=== PATIENT | male | born 1990 | race African-American/Black ===

== ENCOUNTER 2022-01-04 20:01 | Emergency (ER) | payer OTHER ==
[~2022-01-04] VITALS: Ht 162.6 cm; Wt 68.9 kg
[2022-01-04 21:28] VITALS: BP 123/78; TEMP 97.8
== END 2022-01-04 21:28 | disposition home or self-care (01) ==
LOC: ED 20:01
DX: S60.222A Contusion of left hand, initial encounter (principal); S60.512A Abrasion of left hand, initial encounter; S60.413A Abrasion of left middle finger, initial encounter; W23.0XXA Caught, crushed, jammed, or pinched between moving objects, initial encounter; Y92.89 Other specified places as the place of occurrence of the external cause
CPT/HCPCS: 96372; 99283; J1885